=== PATIENT | male | born 1935 | race Caucasian/White ===

== ENCOUNTER 2017-10-22 07:49 | Day surgery (SDC) | payer MEDICARE, BC ==
[~2017-10-22] VITALS: Ht 177.8 cm; Wt 81.7 kg
[2017-10-22] VITALS (17 sets, daily range): BP systolic 112–165; BP diastolic 44–95
[2017-10-22] MEDS ORDERED: normal saline 1000ml 1,000 ML IV SCH (10:40)
[2017-10-22] MEDS ORDERED: LIDOcaine 1%/PF (10mg/ml) 5ml vial SQ ONE (10:50)
[2017-10-22] MEDS ORDERED: midazolam 2 mg/2 ml injection IV PRN (10:50)
[2017-10-22] MEDS ORDERED: fentaNYL/PF 50MCG/1 ML 2ML syringe IV PRN (10:50)
[2017-10-22] MEDS ORDERED: ATOR20TA PO (10:56)
[2017-10-22] MEDS ORDERED: LANS30CA37 PO (10:56)
[2017-10-22] MEDS ORDERED: LISI40TA4 PO (10:56)
[2017-10-22] MEDS ORDERED: primidone PO (10:56)
[2017-10-22] MEDS ORDERED: midazolam 2 mg/2 ml injection ONE (11:06)
[2017-10-22] MEDS ORDERED: fentaNYL/PF 50MCG/1 ML 2ML syringe ONE (11:06)
[2017-10-22] MEDS ORDERED: LIDOcaine 1%/PF (10mg/ml) 5ml vial ONE (11:42)
[2017-10-22] MEDS ORDERED: HYDROcodone/acetaminophen 5mg/325mg tablet PO PRN (12:25)
[2017-10-22] MEDS ORDERED: acetaminophen 325mg tablet PO PRN (12:40)
== END 2017-10-22 14:11 | disposition home or self-care (01) ==
LOC: SSTAY O 07:49
PROVIDERS: ATTEND Radiology Diagnostic Radiology
DX: C78.02 Secondary malignant neoplasm of left lung (principal); I10 Essential (primary) hypertension; E78.00 Pure hypercholesterolemia, unspecified; C80.1 Malignant (primary) neoplasm, unspecified; Z95.5 Presence of coronary angioplasty implant and graft; J93.83 Other pneumothorax; Z93.6 Other artificial openings of urinary tract status; Z85.038 Personal history of other malignant neoplasm of large intestine; Z85.54 Personal history of malignant neoplasm of ureter; Z85.828 Personal history of other malignant neoplasm of skin; Z72.89 Other problems related to lifestyle; Z79.899 Other long term (current) drug therapy; Z98.890 Other specified postprocedural states
CPT/HCPCS: 32405; 32557; 71045; 88341; 88342; A6257; A6449; C1729; J2001; J2250; J3010; J7030; 77012; 88305; 99152; 99153

== ENCOUNTER 2017-10-23 09:17 | Day surgery (SDC) | payer MEDICARE, BC ==
[~2017-10-23] VITALS: Ht 177.8 cm; Wt 82.1 kg
[~2017-10-23 09:17] MED LIST: ATOR20TA PO; LANS30CA37 PO; LISI40TA4 PO; primidone PO
[2017-10-23 09:40] VITALS: BP 142/89
[2017-10-23 11:45] VITALS: BP 142/82
== END 2017-10-23 11:53 | disposition home or self-care (01) ==
LOC: SSTAY O 09:17
PROVIDERS: ATTEND Radiology Diagnostic Radiology
DX: Z46.82 Encounter for fitting and adjustment of non-vascular catheter (principal); E78.00 Pure hypercholesterolemia, unspecified; I10 Essential (primary) hypertension; Z85.038 Personal history of other malignant neoplasm of large intestine; Z85.828 Personal history of other malignant neoplasm of skin; Z93.6 Other artificial openings of urinary tract status; Z85.54 Personal history of malignant neoplasm of ureter; Z72.89 Other problems related to lifestyle; Z95.5 Presence of coronary angioplasty implant and graft; Z98.890 Other specified postprocedural states; Z79.899 Other long term (current) drug therapy
CPT/HCPCS: 32552; 71045; 71046; A6223; A6449